=== PATIENT | male | born 1935 | race African-American/Black ===

== ENCOUNTER 2022-09-22 23:59 | Inpatient (IN) | payer MEDICARE ==
[~2022-09-22] VITALS: Ht 190.5 cm; Wt 88.5 kg
[2022-09-23] VITALS (9 sets, daily range): BP systolic 107–168; BP diastolic 57–131
[2022-09-23] MEDS ORDERED: ALBUTEROL (0.083%) 2.5MG/3ML NEB HHN STA (00:05)
[2022-09-23] MEDS ORDERED: IPRATROPIUM BROMIDE (0.02%) 0.5MG/2.5ML NEB HHN STA (00:05)
[2022-09-23] MEDS ORDERED: SODIUM CHLORIDE 0.9% 1,000 ML IV ONE (00:30)
[2022-09-23 00:52] LABS: BASOPHILS % 0.7 % (0.0-2.0); HEMATOCRIT. 41.4 % (42.0-52.0); LYMPHOCYTES % 30.6 % (20.0-50.0); MEAN CORPUSCULAR HEMOGLOBIN 30.9 pg (28.0-32.0); MEAN CORPUSCULAR VOLUME 91.7 fL (80.0-94.0); MEAN PLATELET VOLUME 8.8 fl (7.4-10.4); MONOCYTES % 7.6 % (2.0-8.0); NEUTROPHILS % 59.1 % (40.0-76.0); PLATELET 286 x1000/uL (130-400); RED BLOOD CELL COUNT 4.52 mill/uL (4.7-6.1)
[2022-09-23 01:00] LABS: BG BASE EXCESS -1.1 mmol/L (-2.0-2.0); BG CARBOXYHEMOGLOBIN 0.6 % (0.5-1.5); BG DEOXYHEMOGLOBIN 0.9 % (0.0-5.0); BG FRACTION INSPIRED OXYGEN 60; BG HCO3 ACT 24.1 mmol/L (22.0-26.0); BG METHEMOGLOBIN 0.5 % (0.0-1.5); BG OXYGEN SATURATION 99.1 % (92.0-98.5); BG PCO2 41.7 mmHg (35.0-45.0); BG PH 7.379 (7.350-7.450); BG PO2 177.3 mmHg (75.0-100.0); BG SAMPLE SITE RIGHT RADIAL; BG VENT MODE MASK - BIPAP
[2022-09-23 01:09] LABS: CHLORIDE 107 mEq/L (98-107)
[2022-09-23] MEDS ORDERED: VANCOMYCIN 1G PREMIX 200 ML IV SCH (02:00)
[2022-09-23] MEDS ORDERED: AZITHROMYCIN 500MG/250ML 250 ML IV ONE (02:00)
[2022-09-23] MEDS ORDERED: NOREPINEPHRINE 8MG/250ML PMX 250 ML IV ONE (04:00)
[2022-09-23] MEDS ORDERED: ENOXAPARIN 100MG/ML SYR SUBCUT ONE (04:15)
[2022-09-23] MEDS ORDERED: NOREPINEPHRINE 8 MG in DEXTROSE 5% WATER 250 ML IV NR (04:45)
[2022-09-23] MEDS ORDERED: ENOXAPARIN 100MG/ML SYR SUBCUT SCH (09:00)
[2022-09-23] MEDS ORDERED: ONDANSETRON HCL 4MG/2ML INJ IV PRN (12:15)
[2022-09-23] MEDS ORDERED: IPRATROPIUM/ALBUTEROL 0.5-3(2.5)MG/3ML NEB HHN SCH (12:15)
[2022-09-23] MEDS ORDERED: ACETAMINOPHEN 325MG TABLET PO PRN (12:15)
[2022-09-23] MEDS ORDERED: ENOXAPARIN 40MG/0.4ML SYR SUBCUT SCH (12:45)
[2022-09-23] MEDS ORDERED: ASPIRIN 81MG EC TABLET PO NR (13:15)
[2022-09-23] MEDS ORDERED: ENOXAPARIN 60MG/0.6ML SYR SUBCUT SCH (14:00)
[2022-09-23] MEDS ORDERED: LEVOFLOXACIN 750MG PREMIX 150 ML IV SCH (15:00)
[2022-09-23 17:12] LABS: D-DIMER 1.26 mg/L FEU (<0.50); INR 1.1; PROTHROMBIN TIME 11.4 sec (9.6-11.0)
[2022-09-23 17:39] LABS: CREATINE KINASE MB FRACTION 4.9 ng/mL (0.5-3.6)
[2022-09-23] MEDS: AMLODIPINE 2.5MG TABLET PO SCH (21:42)
[2022-09-24] VITALS (11 sets, daily range): BP systolic 111–138; BP diastolic 48–85
[2022-09-24 00:16] LABS: CREATINE KINASE MB FRACTION 3.8 ng/mL (0.5-3.6)
[2022-09-24] MEDS: ALBUTEROL (0.083%) 2.5MG/3ML NEB HHN SCH ×6 (01:43→21:01)
[2022-09-24] MEDS: IPRATROPIUM BROMIDE (0.02%) 0.5MG/2.5ML NEB HHN SCH ×6 (01:43→21:02)
[2022-09-24] MEDS: AMLODIPINE 2.5MG TABLET PO SCH ×2 (08:32→21:00)
[2022-09-24] MEDS: ASPIRIN 81MG EC TABLET PO SCH (08:32)
[2022-09-24 08:47] LABS: BASOPHILS % 0.6 % (0.0-2.0); EOSINOPHILS % 0.4 % (0.0-5.0); HEMATOCRIT. 34.9 % (42.0-52.0); HEMOGLOBIN. 11.8 g/dL (14.0-18.0); LYMPHOCYTES % 16.3 % (20.0-50.0); MEAN CORPUSCULAR HEMOGLOBIN 30.8 pg (28.0-32.0); MEAN CORPUSCULAR VOLUME 90.9 fL (80.0-94.0); MEAN PLATELET VOLUME 9.1 fl (7.4-10.4); MONOCYTES % 12.2 % (2.0-8.0); NEUTROPHILS % 70.5 % (40.0-76.0); PLATELET 237 x1000/uL (130-400); RED BLOOD CELL COUNT 3.84 mill/uL (4.7-6.1); RED CELL DISTRIBUTION WIDTH 13.8 % (11.6-14.6)
[2022-09-24] MEDS ORDERED: ENOXAPARIN 100MG/ML SYR SUBCUT SCH (09:00)
[2022-09-24 09:09] LABS: CHLORIDE 107 mEq/L (98-107)
[2022-09-24 09:20] LABS: HDL CHOLESTEROL 42 mg/dL (40-59); LDL CHOLESTEROL 59 mg/dL (5-100)
[2022-09-24] MEDS ORDERED: HEPARIN 1000 UNITS/ML 10ML ONE (10:42)
[2022-09-24] MEDS ORDERED: IODIXANOL 320MG/ML 100 ML BOTTLE IV ONE (10:42)
[2022-09-24] MEDS ORDERED: LIDOCAINE HCL/PF 2% 20MG/ML 5 ML/VIAL ONE (10:42)
[2022-09-24] MEDS ORDERED: FENTANYL CITRATE/PF 50MCG/ML 2ML VIAL ONE (11:09)
[2022-09-24] MEDS ORDERED: MIDAZOLAM HCL 2 MG/2 ML VIAL ONE (11:09)
[2022-09-24] MEDS ORDERED: ONDANSETRON HCL 4MG/2ML INJ IV PRN (11:45)
[2022-09-24] MEDS ORDERED: ACETAMINOPHEN 325MG TABLET PO PRN (11:45)
[2022-09-24] MEDS ORDERED: ATROPINE SULFATE 1MG/10ML SYR IV PRN (11:45)
[2022-09-24] MEDS ORDERED: LEVOFLOXACIN 750MG PREMIX 150 ML IV SCH (18:00)
[2022-09-24] MEDS ORDERED: DIPHENHYDRAMINE 25MG CAPSULE PO PRN (18:45)
[2022-09-25 00:29] LABS: *AMPHETAMINES SCREEN URINE NEGATIVE (NEGATIVE); *BARBITURATES SCREEN URINE NEGATIVE (NEGATIVE); *BENZODIAZEPINES SCREEN URINE PRESUMTIVE POSITIVE (NEGATIVE); *COCAINE SCREEN URINE NEGATIVE (NEGATIVE); CANNABINOID URINE SCREEN NEGATIVE (NEGATIVE); METHADONE URINE SCREEN NEGATIVE (NEGATIVE); OPIATES URINE SCREEN PRESUMTIVE POSITIVE (NEGATIVE); PHENCYCLIDINE URINE SCREEN NEGATIVE (NEGATIVE)
[2022-09-25] MEDS: IPRATROPIUM BROMIDE (0.02%) 0.5MG/2.5ML NEB HHN SCH ×4 (00:53→13:11)
[2022-09-25] MEDS: ALBUTEROL (0.083%) 2.5MG/3ML NEB HHN SCH ×4 (00:53→13:11)
[2022-09-25 03:50] VITALS: BP 122/73
[2022-09-25 06:40] LABS: HEMATOCRIT. 31.6 % (42.0-52.0); HEMOGLOBIN. 10.7 g/dL (14.0-18.0); MEAN CORPUSCULAR HEMOGLOBIN 30.7 pg (28.0-32.0); MEAN CORPUSCULAR VOLUME 90.7 fL (80.0-94.0); MEAN PLATELET VOLUME 8.6 fl (7.4-10.4); PLATELET 210 x1000/uL (130-400); RED BLOOD CELL COUNT 3.48 mill/uL (4.7-6.1); RED CELL DISTRIBUTION WIDTH 13.7 % (11.6-14.6)
[2022-09-25 06:55] LABS: CHLORIDE 108 mEq/L (98-107)
[2022-09-25 08:00] VITALS: BP 130/87
[2022-09-25] MEDS ORDERED: POTASSIUM CHLORIDE 20MEQ/PACKET PO NR (08:00)
[2022-09-25] MEDS: ASPIRIN 81MG EC TABLET PO SCH (08:34)
[2022-09-25] MEDS ORDERED: CARVEDILOL 3.125 MG TABLET PO SCH (09:00)
[2022-09-25] MEDS ORDERED: FUROSEMIDE 40MG TABLET PO SCH (09:00)
[2022-09-25 11:16] LABS: PLATELET ESTIMATE NORMAL
[2022-09-25] MEDS ORDERED: KETO15CR2 TP (11:50)
[2022-09-25] MEDS ORDERED: HYDR25TA MT (11:50)
[2022-09-25] MEDS ORDERED: LATA2.5D14 EACHEYE (11:50)
[2022-09-25] MEDS ORDERED: POTA-189 PO (11:50)
[2022-09-25] MEDS ORDERED: METF-416 MT (11:50)
[2022-09-25] MEDS ORDERED: LISI20TA31 MT (11:50)
[2022-09-25] MEDS ORDERED: DOCU100T MT (11:50)
[2022-09-25] MEDS ORDERED: AMLO10TA80 MT (11:50)
[2022-09-25] MEDS ORDERED: MECL-217 MT (11:50)
[2022-09-25] MEDS ORDERED: MAGN400T29 PO (11:50)
[2022-09-25] MEDS ORDERED: HYDR-4005 MT (11:50)
[2022-09-25] MEDS ORDERED: SIMV-46 MT (11:50)
[2022-09-25 12:00] VITALS: BP 130/87
[2022-09-25] MEDS ORDERED: IPRA3AMP9 NEB (12:03)
[2022-09-25] MEDS ORDERED: FLUT1DIS3 INH (12:03)
[2022-09-25] MEDS ORDERED: ALBU18HF2 IH (12:03)
[2022-09-25] MEDS ORDERED: ASPI-1406 MT (12:03)
[2022-09-25] MEDS ORDERED: COR3 PO (12:03)
[2022-09-25 13:31] VITALS: BP 130/87
[2022-09-25] MEDS ORDERED: LEVOFLOXACIN 250MG TABLET PO SCH (18:00)
== END 2022-09-25 16:14 | disposition home or self-care (01) | DRG 280 ==
LOC: ER 09-23 00:11 → 5EST 09-23 03:40 → EDBEDREQTM 09-23 03:46 → EDBEDREQ 09-23 03:46 → ENRESERV 09-23 08:07 → 3WST 09-24 12:21
PROVIDERS: ADMIT Internal Medicine; ATTEND Internal Medicine
PROC: 5A09357 Assistance with Respiratory Ventilation, Less than 24 Consecutive Hours, Continuous Positive Airway Pressure (ICD-10-PCS; 2022-09-23)
PROC: B211YZZ Fluoroscopy of Multiple Coronary Arteries using Other Contrast (ICD-10-PCS; principal; 2022-09-24)
PROC: 4A023N7 Measurement of Cardiac Sampling and Pressure, Left Heart, Percutaneous Approach (ICD-10-PCS; 2022-09-24)
DX: I21.4 Non-ST elevation (NSTEMI) myocardial infarction (principal); J18.9 Pneumonia, unspecified organism; J96.21 Acute and chronic respiratory failure with hypoxia; J44.0 Chronic obstructive pulmonary disease with (acute) lower respiratory infection; I10 Essential (primary) hypertension; E11.9 Type 2 diabetes mellitus without complications; F17.290 Nicotine dependence, other tobacco product, uncomplicated; I34.0 Nonrheumatic mitral (valve) insufficiency; I25.10 Atherosclerotic heart disease of native coronary artery without angina pectoris; I44.7 Left bundle-branch block, unspecified; Z86.711 Personal history of pulmonary embolism; Z79.82 Long term (current) use of aspirin; Z79.84 Long term (current) use of oral hypoglycemic drugs
CPT/HCPCS: 36415; 36600; 71045; 80048; 80053; 80061; 80305; 82375; 82553; 82805; 83036; 83605; 83735; 83880; 84484; 85025; 85379; 87426; 87804; 93005; 93306; 93458; 94640; 94660; 99291; C1769; C1887; C1893; J0456; J1644; J1650; J1956; J2250; J2405; J3010; J3370; J3490; J7030; J7060; Q0163; Q9967